=== PATIENT | male | born 1980 | race African-American/Black ===

== ENCOUNTER 2021-02-11 18:04 | Emergency (ER) | payer BC ==
[~2021-02-11] VITALS: Ht 182.9 cm; Wt 107.0 kg
[2021-02-11 18:14] VITALS: BP 111/66
[2021-02-11] MEDS ORDERED: SODIUM CHLORIDE 0.9% 1,000 ML IV ONE (21:15)
[2021-02-11 21:29] LABS: HEMATOCRIT. 38.8 % (42.0-52.0); HEMOGLOBIN. 12.9 g/dL (14.0-18.0); MEAN CORPUSCULAR HEMOGLOBIN 27.8 pg (28.0-32.0); MEAN CORPUSCULAR VOLUME 83.6 fL (80.0-94.0); MEAN PLATELET VOLUME 8.3 fl (7.4-10.4); PLATELET 150 x1000/uL (130-400); RED BLOOD CELL COUNT 4.65 mill/uL (4.7-6.1); RED CELL DISTRIBUTION WIDTH 14.9 % (11.6-14.6)
[2021-02-11] MEDS ORDERED: ASPIRIN 325MG EC TABLET PO ONE (21:30)
[2021-02-11 21:35] LABS: CHLORIDE 109 mEq/L (98-107)
[2021-02-11 21:59] LABS: PLATELET ESTIMATE NORMAL
== END 2021-02-11 23:44 | disposition left against medical advice (07) ==
LOC: ER 19:03
DX: R55 Syncope and collapse (principal); R42 Dizziness and giddiness; F12.10 Cannabis abuse, uncomplicated
CPT/HCPCS: 36415; 71045; 80053; 84484; 85025; 93005; 96360; 99285; J7030